=== PATIENT | male | born 1975 | race Asian ===

== ENCOUNTER 2018-07-14 08:46 | Day surgery (SDC) | payer OTHER ==
[2018-07-14] MEDS: FENTAnyl 50 MCG/ML VIAL (11:27)
[2018-07-14] MEDS: LIDOCAINE 1% (MPF) 5 ML VIAL (11:29)
[2018-07-14] MEDS: GELATIN 12MM X 7 MM SPONGE (11:33)
[2018-07-14] MEDS: SOD CHLORIDE 0.9% 1,000 ML IV (12:00)
== END 2018-07-14 12:56 | disposition home or self-care (01) ==
LOC: SDS 08:46
DX: N26.9 Renal sclerosis, unspecified (principal); I12.9 Hypertensive chronic kidney disease with stage 1 through stage 4 chronic kidney disease, or unspecified chronic kidney disease; N18.9 Chronic kidney disease, unspecified; E78.5 Hyperlipidemia, unspecified; R73.03 Prediabetes
CPT/HCPCS: 50200; 77012